=== PATIENT | male | born 1940 | race Caucasian/White ===

== ENCOUNTER 2017-08-11 06:27 | Inpatient (IN) ==
[2017-08-11] MEDS ORDERED: DIAZEPAM 5 MG TABLET PO ONE (07:10)
[2017-08-11] MEDS: SODIUM CHLORIDE 0.45% 1,000 ML IV SCH (08:58)
[2017-08-11 09:25] LABS: INR 1.1; PT Patient Result 11.1 SECS; Partial Thromboplastin Time 24.2 SECS (0-40)
[2017-08-11] MEDS ORDERED: DIAZEPAM 5 MG TABLET ONE (09:46)
[2017-08-11] MEDS: MORPHINE 2 MG/1 ML SYRINGE IV PRN ×2 (14:20→20:35)
[2017-08-11] MEDS ORDERED: NITROGLYCERIN SL 0.4 MG TABLET SL PRN (14:40)
[2017-08-11] MEDS: FOLIC ACID 1 MG TABLET PO SCH (20:36)
[2017-08-11] MEDS: CITALOPRAM 20 MG TABLET PO SCH (20:36)
[2017-08-11] MEDS: ASPIRIN EC 81 MG TABLET PO SCH (20:37)
[2017-08-11] MEDS: SIMVASTATIN 40 MG TABLET PO SCH (20:37)
[2017-08-11] MEDS: DONEPEZIL 5 MG TABLET PO SCH (20:37)
[2017-08-11] MEDS: GABAPENTIN 300 MG CAPSULE PO SCH (20:37)
[2017-08-11] MEDS: CETIRIZINE 10 MG TABLET PO SCH (20:37)
[2017-08-12 05:48] LABS: Basophils # 0.1 10*3/uL (0.0-0.2); Basophils % 0.7 % (0.0-0.8); Eosinophils # 0.4 10*3/uL (0.0-0.87); Eosinophils % 4.4 % (0.00-10.9); Hematocrit 39.2 VOL% (42.0-52.0); Hemoglobin 13.4 GM/DL (14.0-18.0); Immature Granulocytes % 0.4 %; Immature Granulocytes Absolute 0.04 #; Lymphocytes # 1.3 10*3/uL (1.4-4.0); Lymphocytes % 14.4 % (21.2-54.2); Mean Corpuscular HGB Conc 34.2 GM/DL (32-36); Mean Corpuscular Hemoglobin 32 PG (27-34); Mean Corpuscular Volume 93.6 FL (87-102); Mean Platelet Volume 12.6 FL (9.6-12.0); Monocytes # 1.1 10*3/uL (0.11-0.8); Neutrophils # 6.1 10*3/uL (1.4-7.4); Neutrophils % 68.1 % (38.7-73.9); Platelet Count 155 T/CUMM (130-400); Red Blood Count 4.19 MC/CUMM (3.8-5.5); Red Cell Distribution Width 13.7 % (9.3-17.3)
[2017-08-12 06:18] LABS: Calcium 8.6 MG/DL (8.5-10.1); Magnesium 2.1 MG/DL (1.8-2.4); Osmolality,Calculated 286.4 MOS/KG (273-304); Potassium 3.5 MMOL/L (3.5-5.1)
[2017-08-12] MEDS: THIAMINE 100 MG TABLET PO SCH (09:28)
[2017-08-12] MEDS: amLODIPine 5 MG TABLET PO SCH (09:28)
[2017-08-12] MEDS: PANTOPRAZOLE 40 MG TABLET PO SCH (09:28)
[2017-08-12] MEDS: FOLIC ACID 1 MG TABLET PO SCH ×2 (09:28→21:43)
[2017-08-12] MEDS: MORPHINE 2 MG/1 ML SYRINGE IV PRN ×2 (10:48→21:44)
[2017-08-12] MEDS: GABAPENTIN 300 MG CAPSULE PO SCH (21:43)
[2017-08-12] MEDS: SIMVASTATIN 40 MG TABLET PO SCH (21:43)
[2017-08-12] MEDS: DONEPEZIL 5 MG TABLET PO SCH (21:43)
[2017-08-12] MEDS: CITALOPRAM 20 MG TABLET PO SCH (21:43)
[2017-08-12] MEDS: ASPIRIN EC 81 MG TABLET PO SCH (21:44)
[2017-08-12] MEDS: CETIRIZINE 10 MG TABLET PO SCH (21:44)
[2017-08-13] MEDS ORDERED: ALBUTEROL/IPRATROPIUM 3 ML NEB RESP TX PRN (00:30)
[2017-08-13] MEDS ORDERED: ALBUTEROL/IPRATROPIUM 3 ML NEB RESP TX STA (00:30)
[2017-08-13] MEDS: MORPHINE 2 MG/1 ML SYRINGE IV PRN ×3 (02:47→22:53)
[2017-08-13] MEDS: methylPREDNISolone SOD SUC 40 MG/1 ML VIAL IV SCH ×3 (03:10→17:23)
[2017-08-13] MEDS: cefTRIAXone 1,000 MG in SYRINGE 1 EACH IV SCH (03:10)
[2017-08-13] MEDS: FOLIC ACID 1 MG TABLET PO SCH ×2 (09:48→22:47)
[2017-08-13] MEDS: PANTOPRAZOLE 40 MG TABLET PO SCH (09:48)
[2017-08-13] MEDS: THIAMINE 100 MG TABLET PO SCH (09:48)
[2017-08-13] MEDS: amLODIPine 5 MG TABLET PO SCH (09:48)
[2017-08-13] MEDS: ALBUTEROL/IPRATROPIUM 3 ML NEB RESP TX SCH ×2 (14:03→20:32)
[2017-08-13] MEDS: GABAPENTIN 300 MG CAPSULE PO SCH (22:48)
[2017-08-13] MEDS: SIMVASTATIN 40 MG TABLET PO SCH (22:48)
[2017-08-13] MEDS: ASPIRIN EC 81 MG TABLET PO SCH (22:48)
[2017-08-13] MEDS: CITALOPRAM 20 MG TABLET PO SCH (22:49)
[2017-08-13] MEDS: CETIRIZINE 10 MG TABLET PO SCH (22:49)
[2017-08-13] MEDS: DONEPEZIL 5 MG TABLET PO SCH (22:52)
[2017-08-14] MEDS: ALBUTEROL/IPRATROPIUM 3 ML NEB RESP TX SCH ×4 (00:57→22:23)
[2017-08-14] MEDS: methylPREDNISolone SOD SUC 40 MG/1 ML VIAL IV SCH ×3 (01:42→17:29)
[2017-08-14 03:25] LABS: Basophils % 0.1 % (0.0-0.8); Hematocrit 40.4 VOL% (42.0-52.0); Hemoglobin 14.1 GM/DL (14.0-18.0); Immature Granulocytes % 0.6 %; Immature Granulocytes Absolute 0.08 #; Lymphocytes # 0.5 10*3/uL (1.4-4.0); Lymphocytes % 4.1 % (21.2-54.2); Mean Corpuscular HGB Conc 34.9 GM/DL (32-36); Mean Corpuscular Hemoglobin 33 PG (27-34); Mean Corpuscular Volume 93.3 FL (87-102); Mean Platelet Volume 12.3 FL (9.6-12.0); Monocytes # 0.6 10*3/uL (0.11-0.8); Monocytes % 4.7 % (1.7-12.7); Neutrophils # 11.2 10*3/uL (1.4-7.4); Neutrophils % 90.5 % (38.7-73.9); Platelet Count 159 T/CUMM (130-400); Red Blood Count 4.33 MC/CUMM (3.8-5.5); Red Cell Distribution Width 13.1 % (9.3-17.3); White Blood Count 12.3 T/CUMM (4-12)
[2017-08-14 04:03] LABS: Calcium 8.9 MG/DL (8.5-10.1); Osmolality,Calculated 291.3 MOS/KG (273-304); Potassium 3.7 MMOL/L (3.5-5.1)
[2017-08-14] MEDS: MORPHINE 2 MG/1 ML SYRINGE IV PRN ×2 (04:13→11:44)
[2017-08-14 05:24] LABS: Band Neutrophils 1 % (0-10); Lymphocytes 7 % (20-55); Microcytosis 1+; Platelet Estimate Adequate; Segmented Neutrophils 90 % (50-85); Total Cells Counted 100
[2017-08-14] MEDS: FOLIC ACID 1 MG TABLET PO SCH (08:47)
[2017-08-14] MEDS: amLODIPine 5 MG TABLET PO SCH (08:47)
[2017-08-14] MEDS: THIAMINE 100 MG TABLET PO SCH (08:48)
[2017-08-14] MEDS: PANTOPRAZOLE 40 MG TABLET PO SCH (08:48)
[2017-08-14] MEDS: cefTRIAXone 1,000 MG in SYRINGE 1 EACH IV SCH (08:54)
[2017-08-14] MEDS: SODIUM CHLORIDE 0.45% 1,000 ML IV SCH (09:02)
[2017-08-14] MEDS ORDERED: QUEtiapine 25 MG TABLET PO ONE (11:25)
[2017-08-14] MEDS: QUEtiapine 25 MG TABLET PO SCH (17:27)
[2017-08-15] MEDS: MORPHINE 2 MG/1 ML SYRINGE IV PRN (00:58)
[2017-08-15] MEDS: DONEPEZIL 5 MG TABLET PO SCH ×2 (01:38→20:20)
[2017-08-15] MEDS: FOLIC ACID 1 MG TABLET PO SCH ×3 (01:39→20:19)
[2017-08-15] MEDS: SIMVASTATIN 40 MG TABLET PO SCH ×2 (01:40→20:20)
[2017-08-15] MEDS: GABAPENTIN 300 MG CAPSULE PO SCH ×2 (01:40→20:20)
[2017-08-15] MEDS: ASPIRIN EC 81 MG TABLET PO SCH ×2 (01:41→20:22)
[2017-08-15] MEDS: CITALOPRAM 20 MG TABLET PO SCH ×2 (01:41→20:21)
[2017-08-15] MEDS: CETIRIZINE 10 MG TABLET PO SCH ×2 (01:41→20:20)
[2017-08-15] MEDS: methylPREDNISolone SOD SUC 40 MG/1 ML VIAL IV SCH ×3 (01:43→17:36)
[2017-08-15] MEDS: ALBUTEROL/IPRATROPIUM 3 ML NEB RESP TX SCH ×4 (03:55→18:58)
[2017-08-15] MEDS: SODIUM CHLORIDE 0.45% 1,000 ML IV SCH (10:05)
[2017-08-15] MEDS: amLODIPine 5 MG TABLET PO SCH (10:10)
[2017-08-15] MEDS: PANTOPRAZOLE 40 MG TABLET PO SCH (10:11)
[2017-08-15] MEDS: cefTRIAXone 1,000 MG in SYRINGE 1 EACH IV SCH (10:13)
[2017-08-15] MEDS: THIAMINE 100 MG TABLET PO SCH (10:15)
[2017-08-15] MEDS: QUEtiapine 25 MG TABLET PO SCH (10:25)
[2017-08-15] MEDS: LORazepam 2 MG/1 ML VIAL IV PRN ×2 (11:41→20:25)
[2017-08-15] MEDS ORDERED: QUEtiapine 100 MG TABLET PO SCH (17:00)
[2017-08-16] MEDS: methylPREDNISolone SOD SUC 40 MG/1 ML VIAL IV SCH (00:24)
[2017-08-16] MEDS: LORazepam 2 MG/1 ML VIAL IV PRN ×6 (00:26→20:20)
[2017-08-16] MEDS: ALBUTEROL/IPRATROPIUM 3 ML NEB RESP TX SCH ×4 (00:39→20:30)
[2017-08-16] MEDS ORDERED: methylPREDNISolone SOD SUC 40 MG/1 ML VIAL IV SCH (09:00)
[2017-08-16] MEDS: FOLIC ACID 1 MG TABLET PO SCH ×2 (09:26→20:20)
[2017-08-16] MEDS: THIAMINE 100 MG TABLET PO SCH (09:26)
[2017-08-16] MEDS: QUEtiapine 25 MG TABLET PO SCH ×2 (09:26→17:15)
[2017-08-16] MEDS: amLODIPine 5 MG TABLET PO SCH (09:26)
[2017-08-16] MEDS: PANTOPRAZOLE 40 MG TABLET PO SCH (09:26)
[2017-08-16] MEDS: SODIUM CHLORIDE 0.45% 1,000 ML IV SCH ×2 (09:26→09:46)
[2017-08-16] MEDS: cefTRIAXone 1,000 MG in SYRINGE 1 EACH IV SCH (09:43)
[2017-08-16] MEDS: MORPHINE 2 MG/1 ML SYRINGE IV PRN (15:48)
[2017-08-16] MEDS: CITALOPRAM 20 MG TABLET PO SCH (20:19)
[2017-08-16] MEDS: ASPIRIN EC 81 MG TABLET PO SCH (20:19)
[2017-08-16] MEDS: SIMVASTATIN 40 MG TABLET PO SCH (20:19)
[2017-08-16] MEDS: DONEPEZIL 5 MG TABLET PO SCH (20:20)
[2017-08-16] MEDS: GABAPENTIN 300 MG CAPSULE PO SCH (20:20)
[2017-08-16] MEDS: CETIRIZINE 10 MG TABLET PO SCH (20:20)
[2017-08-17] MEDS: ALBUTEROL/IPRATROPIUM 3 ML NEB RESP TX SCH ×4 (00:39→19:34)
[2017-08-17] MEDS: LORazepam 2 MG/1 ML VIAL IV PRN ×2 (01:40→06:50)
[2017-08-17] MEDS: cefTRIAXone 1,000 MG in SYRINGE 1 EACH IV SCH (09:33)
[2017-08-17] MEDS: THIAMINE 100 MG TABLET PO SCH (09:37)
[2017-08-17] MEDS: PANTOPRAZOLE 40 MG TABLET PO SCH (09:37)
[2017-08-17] MEDS: FOLIC ACID 1 MG TABLET PO SCH ×2 (09:37→09:49)
[2017-08-17] MEDS: QUEtiapine 25 MG TABLET PO SCH ×3 (09:37→18:03)
[2017-08-17] MEDS: amLODIPine 5 MG TABLET PO SCH ×3 (09:37→09:50)
[2017-08-17] MEDS: MORPHINE 2 MG/1 ML SYRINGE IV PRN (12:07)
[2017-08-17] MEDS: OXYBUTYNIN XL 15 MG TABLET PO SCH (12:07)
[2017-08-17] MEDS ORDERED: MORPHINE 2 MG/1 ML SYRINGE IV ONE (13:00)
[2017-08-17] MEDS ORDERED: ZIPRASIDONE 20 MG/1 ML VIAL IM ONE (13:00)
[2017-08-17] MEDS ORDERED: MORPHINE 2 MG/1 ML SYRINGE IV PRN (13:39)
[2017-08-17] MEDS ORDERED: ZIPRASIDONE 20 MG/1 ML VIAL IM PRN (19:00)
[2017-08-18] MEDS: ALBUTEROL/IPRATROPIUM 3 ML NEB RESP TX SCH ×4 (00:10→19:49)
[2017-08-18] MEDS: DONEPEZIL 5 MG TABLET PO SCH ×2 (00:52→20:11)
[2017-08-18] MEDS: CETIRIZINE 10 MG TABLET PO SCH ×2 (00:52→20:10)
[2017-08-18] MEDS: CITALOPRAM 20 MG TABLET PO SCH ×2 (00:52→20:09)
[2017-08-18] MEDS: FOLIC ACID 1 MG TABLET PO SCH ×3 (00:53→20:10)
[2017-08-18] MEDS: ASPIRIN EC 81 MG TABLET PO SCH ×2 (00:53→20:09)
[2017-08-18] MEDS: GABAPENTIN 300 MG CAPSULE PO SCH ×2 (00:53→20:09)
[2017-08-18] MEDS: SIMVASTATIN 40 MG TABLET PO SCH ×2 (00:53→20:10)
[2017-08-18] MEDS ORDERED: TISSUE ADHESIVE 1 EACH APPLICATOR TOP ONE (07:28)
[2017-08-18] MEDS: cefTRIAXone 1,000 MG in SYRINGE 1 EACH IV SCH (09:53)
[2017-08-18] MEDS: QUEtiapine 25 MG TABLET PO SCH ×2 (09:56→17:21)
[2017-08-18] MEDS: THIAMINE 100 MG TABLET PO SCH (09:56)
[2017-08-18] MEDS: PANTOPRAZOLE 40 MG TABLET PO SCH (09:56)
[2017-08-18] MEDS: OXYBUTYNIN XL 15 MG TABLET PO SCH (09:56)
[2017-08-18] MEDS: amLODIPine 5 MG TABLET PO SCH (09:56)
[2017-08-18] MEDS: SODIUM CHLORIDE 0.45% 1,000 ML IV SCH ×2 (17:21→17:22)
[2017-08-19] MEDS: ALBUTEROL/IPRATROPIUM 3 ML NEB RESP TX SCH ×4 (01:15→20:38)
[2017-08-19] MEDS ORDERED: DEXTROMETHORPHAN ER 6 MG/ML 90 ML/BOTTLE PO PRN (06:36)
[2017-08-19 07:36] LABS: Basophils % 0.2 % (0.0-0.8); Eosinophils # 0.7 10*3/uL (0.0-0.87); Eosinophils % 5.7 % (0.00-10.9); Hematocrit 42.6 VOL% (42.0-52.0); Hemoglobin 14.8 GM/DL (14.0-18.0); Immature Granulocytes % 1.3 %; Immature Granulocytes Absolute 0.16 #; Lymphocytes # 1.4 10*3/uL (1.4-4.0); Lymphocytes % 10.6 % (21.2-54.2); Mean Corpuscular HGB Conc 34.7 GM/DL (32-36); Mean Corpuscular Hemoglobin 32 PG (27-34); Mean Corpuscular Volume 92.8 FL (87-102); Mean Platelet Volume 11.3 FL (9.6-12.0); Monocytes # 1.5 10*3/uL (0.11-0.8); Monocytes % 11.4 % (1.7-12.7); Neutrophils # 9.1 10*3/uL (1.4-7.4); Neutrophils % 70.8 % (38.7-73.9); Platelet Count 147 T/CUMM (130-400); Red Blood Count 4.59 MC/CUMM (3.8-5.5); Red Cell Distribution Width 13.6 % (9.3-17.3); White Blood Count 12.8 T/CUMM (4-12)
[2017-08-19 08:05] LABS: Calcium 8.3 MG/DL (8.5-10.1); Magnesium 2.5 MG/DL (1.8-2.4); Osmolality,Calculated 286.3 MOS/KG (273-304); Potassium 3.9 MMOL/L (3.5-5.1)
[2017-08-19] MEDS: amLODIPine 5 MG TABLET PO SCH (08:22)
[2017-08-19] MEDS: PANTOPRAZOLE 40 MG TABLET PO SCH (08:22)
[2017-08-19] MEDS: OXYBUTYNIN XL 15 MG TABLET PO SCH (08:22)
[2017-08-19] MEDS: FOLIC ACID 1 MG TABLET PO SCH ×2 (08:22→22:15)
[2017-08-19] MEDS: predniSONE 20 MG TABLET PO SCH (08:22)
[2017-08-19] MEDS: THIAMINE 100 MG TABLET PO SCH (08:22)
[2017-08-19] MEDS: QUEtiapine 25 MG TABLET PO SCH ×2 (08:23→17:17)
[2017-08-19] MEDS: APIXABAN 2.5 MG TABLET PO SCH ×2 (08:28→22:16)
[2017-08-19] MEDS: CEFUROXIME 500 MG TABLET PO SCH ×2 (08:28→22:14)
[2017-08-19] MEDS: CITALOPRAM 20 MG TABLET PO SCH (22:14)
[2017-08-19] MEDS: ASPIRIN EC 81 MG TABLET PO SCH (22:15)
[2017-08-19] MEDS: DONEPEZIL 5 MG TABLET PO SCH (22:15)
[2017-08-19] MEDS: SIMVASTATIN 40 MG TABLET PO SCH (22:15)
[2017-08-19] MEDS: CETIRIZINE 10 MG TABLET PO SCH (22:15)
[2017-08-19] MEDS: GABAPENTIN 300 MG CAPSULE PO SCH (22:15)
[2017-08-20] MEDS: ALBUTEROL/IPRATROPIUM 3 ML NEB RESP TX SCH ×2 (01:38→07:21)
[2017-08-20] MEDS: OXYBUTYNIN XL 15 MG TABLET PO SCH (09:51)
[2017-08-20] MEDS: APIXABAN 2.5 MG TABLET PO SCH (09:52)
[2017-08-20] MEDS: THIAMINE 100 MG TABLET PO SCH (09:52)
[2017-08-20] MEDS: amLODIPine 5 MG TABLET PO SCH (09:52)
[2017-08-20] MEDS: predniSONE 20 MG TABLET PO SCH (09:52)
[2017-08-20] MEDS: CEFUROXIME 500 MG TABLET PO SCH (09:53)
[2017-08-20] MEDS: FOLIC ACID 1 MG TABLET PO SCH (09:53)
[2017-08-20 13:27] VITALS: BP 123/72
== END 2017-08-20 15:53 | disposition home health service (06) | DRG 200 ==
LOC: N.RAD 06:27 → N.SDSINP 06:30 → N.2E 12:24
PROVIDERS: ADMIT Radiology Diagnostic Radiology; ATTEND Internal Medicine Pulmonary Disease